=== PATIENT | male | born 1995 | race Two or more races ===

== ENCOUNTER 2018-10-09 21:31 | Emergency (ER) | payer OTHER ==
[2018-10-09 23:49] VITALS: BP 119/65
[2018-10-10] MEDS ORDERED: oxyCODONE/Acetamin 5/325 MG* TAB PO ONE (00:04)
[2018-10-10] MEDS ORDERED: Ibuprofen TAB* 600 MG PO ONE (00:04)
--- NOTE | 2018-10-10 00:58 | ED ---
Lower Extremity - HPI Summary HPI Summary: The patient is a 23 year old male who is presenting to the [facility] with a chief complaint of right knee pain. The patient states that he attended his [employer] class in the morning and was feeling fine until about 1830 where the first signs of right knee pain began. The knee pain was mild at first. By 1899, the knee pain worsened. The pain is constant, and the patient has not been able to bear any weight on the right knee. He is currently wheelchair bound and states that he is unable to walk. Symptoms are aggravated by movement and weight. Symptoms are alleviated by nothing. Medication taken at home include ibuprofen (2 tabs). The pain is rated to be 4/10 in severity. Patient reports minor right knee swelling as well. - History of Current Complaint Chief Complaint: EDExtremityLower Stated Complaint: RIGHT KNEE INJURY PER PT Time Seen by Provider: 10/09/18 23:51 Hx Obtained From: Patient Onset/Duration: Hours Severity Currently: Mild Pain Intensity: 4 Pain Scale Used: 0-10 Numeric Timing: Constant Location: Is Discrete @ - Right knee Associated Signs And Symptoms: Positive: Negative Aggravating Factor(s): Standing, Weight Bearing Alleviating Factor(s): Nothing - Allergies/Home Medications Allergies/Adverse Reactions: Allergies Allergy/AdvReac Type Severity Reaction Status Date / Time sun Allergy Hives Uncoded 10/09/18 21:36 PMH/Surg Hx/FS Hx/Imm Hx Sensory History: Denies: Hx Deafness Opthamlomology History: Denies: Hx Legally Blind EENT History: Denies: Hx Deafness Infectious Disease History: No Infectious Disease History: Denies: Traveled Outside the [place] in Last 30 Days - Family History Known Family History: Positive: Non-Contributory Family History: FHx reviewed and noncontributory. - Social History Occupation: Student Lives: Dormitory/Roommates Alcohol Use: Occasionally Substance Use Type: Reports: None Smoking Status (MU): Never Smoked Tobacco Review of Systems Constitutional: Negative Eyes: Negative ENT: Negative Cardiovascular: Negative Respiratory: Negative Gastrointestinal: Negative Genitourinary: Negative Musculoskeletal: Other - Right knee pain Positive: Edema - Right knee swelling Skin: Negative Neurological: Negative Psychological: Normal All Other Systems Reviewed And Are Negative: Yes Physical Exam - Summary Physical Exam Summary: VITAL SIGNS: Reviewed. GENERAL: Patient is a well-developed and nourished (MALE) who is lying comfortable in the stretcher. Patient is not in any acute respiratory distress. HEAD AND FACE: No signs of trauma. No ecchymosis, hematomas or skull depressions. No sinus tenderness. EYES: PERRLA, EOMI x 2, No injected conjunctiva, no nystagmus. EARS: Hearing grossly intact. Ear canals and tympanic membranes are within normal limits. MOUTH: Oropharynx within normal limits. NECK: Supple, trachea is midline, no adenopathy, no JVD, no carotid bruit, no c- spine tenderness, neck with full ROM. CHEST: Symmetric, no tenderness at palpation LUNGS: Clear to auscultation bilaterally. No wheezing or crackles. CVS: Regular rate and rhythm, S1 and S2 present, no murmurs or gallops appreciated. ABDOMEN: Soft, non-tender. No signs of distention. No rebound no guarding, and no masses palpated. Bowel sounds are normal. EXTREMITIES: Minor swelling of the right knee Mild range of motion of the right knee because of pain Beyond Any flexion of 30 degrees the patient is having pain NEURO: Alert and oriented x 3. No acute neurological deficits. Speech is normal and follows commands. SKIN: Dry and warm Triage Information Reviewed: Yes Vital Signs On Initial Exam: Initial Vitals Temp Pulse Resp BP Pulse Ox 98.3 F 91 17 126/67 97 10/09/18 21:31 10/09/18 21:31 10/09/18 21:31 10/09/18 21:31 10/09/18 21:31 Vital Signs Reviewed: Yes Diagnostics - Vital Signs Vital Signs Temp Pulse Resp BP Pulse Ox 10/09/18 23:47 80 16 119/65 96 10/09/18 21:31 98.3 F 91 17 126/67 97 - Laboratory Lab Statement: Any lab studies that have been ordered have been reviewed, and results considered in the medical decision making process. - Radiology Right Knee X-ray Radiology Interpretation Completed By: ED Physician Summary of Radiographic Findings: Right Knee X-ray reveals negative findings as per ED Physician. Lower Extremity Course/Dx - Course Course Of Treatment: The patient is a 23 year old male who is presenting to the [facility] with a chief complaint of right knee pain. We reviewed his physical exam and showed minor right knee swelling along with pain with flexion of the right knee. The patient was given a Right knee X-ray in the [facility] and the imaging resulted in negative findings as per ED Physician report. We discussed the findings with the patient and he is agreeable to discharge. Patient is recommended to follow up with Orthopedist: Dr. Liriano within 1 or 2 days. The dx will be right knee pain. - Diagnoses Provider Diagnoses: Right knee pain Discharge - Sign-Out/Discharge Documenting (check all that apply): Patient Departure - Discharge Home Patient Received Moderate/Deep Sedation with Procedure: No - Discharge Plan Condition: Stable Disposition: HOME Prescriptions: Ibuprofen TAB* [Motrin TAB* 600 MG] 600 mg PO Q6H PRN #30 tab PRN Reason: Pain Patient Education Materials: Knee Pain (ED) Referrals: Emil Liriano MD [Medical Doctor] - Additional Instructions: FOLLOW UP WITH ORTHOPEDIST IN 1 TO 2 DAYS (Dr. Liriano) RETURN TO THE EMERGENCY DEPARTMENT FOR CHANGING OR WORSENING SYMPTOMS. - Attestation Statements Document Initiated by Scribe: Yes Documenting Scribe: Jason Brannon Provider For Whom Scribe is Documenting (Include Credential): Dr. Emily Maciel Scribe Attestation: Jason Mensah, scribed for Dr. Emily Maciel on 10/10/18 at 0129. Status of Scribe Document: Ready
== END 2018-10-10 01:19 | disposition home or self-care (01) ==
LOC: ED 21:31
DX: M25.561 Pain in right knee (principal)
CPT/HCPCS: 99282; A9270-GY